=== PATIENT | female | born 1960 | race Caucasian/White ===

== ENCOUNTER → 2021-09-01 | Day surgery (SDC) | payer BC ==
[~2021-09-01] MED LIST: FENTANYL CITR 100 MCG/2 ML ONE; LIDOCAINE 2% MPF 5 ML VIAL ONE; MIDAZOLAM HCL 2 MG/2 ML INJ ONE; ONDANSETRON 4 MG/2 ML VIAL ONE; ROCURONIUM 50 MG/5 ML VIAL IV ONE; propofoL 200 MG/20 ML VIAL IV ONE
--- NOTE | 2021-09-01 11:59 | RAD REPORT ---
EXAM DESCRIPTION: US - Breast Core BX w/US Guidance - 09/01/2021 11:34 am CLINICAL HISTORY: N60.92 COMPARISON: Mammogram and ultrasound studies August 15 TECHNIQUE: The patient presents for ultrasound-guided biopsy of a previously detailed lateral left b reast mass. The ultrasound-guided core biopsy procedure, risks and alternatives were discussed with the patient i n detail. After answering all questions, both oral and written consent were obtained. Time out proced ure was performed. The patient had no contraindicated allergy or medication history. Preliminary imaging identified the 2-2.5 cm lateral left breast mass. The left breast was prepped and draped in the usual sterile fashion. From a lateral and slightly inferior approach, skin and deeper tissues were anesthetized with 1% lidocaine. Under direct sonographic visualization a 14 gauge vacuum assisted core biopsy needle was advanced and placed at the margin of the mass. There were a total of 2 core biopsies obtained under direct sonographic guidance. The mass did appear to have distortion i n contour supporting transit of the biopsy needle through the mass. At the conclusion of the procedure a localization clip was placed under sonographic guidance at the l ateral margin of the mass. Post biopsy imaging showed no hematoma or measurable bleeding within the breast. Hemostasis was obtai tatiana at the skin site with a sterile bandage placed. Post procedure care and precaution instructions were given to the patient. IMPRESSION: 1. Ultrasound-guided core biopsy was performed of the lateral left breast [address] mass. All obtained material was given to pathology for histologic assessment. 2. Post biopsy localization clip was placed under ultrasound guidance.
== END ==
LOC: DS 10:30
PROVIDERS: ATTEND Specialist
PROC: 0H9U3ZX Drainage of Left Breast, Percutaneous Approach, Diagnostic (ICD-10-PCS; principal; 2021-09-01)
DX: C50.912 Malignant neoplasm of unspecified site of left female breast (principal); Z17.0 Estrogen receptor positive status [ER+]
CPT/HCPCS: 19083; 88305